=== PATIENT | female | born 1950 | race Caucasian/White ===

== ENCOUNTER 2017-09-01 14:00 | Inpatient (IN) | payer MEDICARE, BC ==
[~2017-09-01] VITALS: Ht 160 cm; Wt 59.0 kg
--- NOTE | 2017-09-01 14:05 | NUR ---
PRESENTS TO ER C/O RUQ ABDOMINAL PAIN X LAST NIGHT. A/OX 4. BREATHING EVEN AND UNLABORED. NO SOB, NAD, VITALS STABLE. SAFETY AND COMFORT MEASURES IN PLACE. AWAITING MD ORDERS.
--- NOTE | 2017-09-01 14:40 | NUR ---
NEW IV STARTED ON RAC, 20G. BLOOD DRAWN AND SENT TO LAB.
[2017-09-01 14:43] LABS: BASOPHILS % (AUTO) 0.2 % (0.0-2.0); EOSINOPHILS % (AUTO) 0.7 % (0.0-6.0); HEMATOCRIT 43 % (33-45); HEMOGLOBIN 14.9 g/dL (11.5-14.8); LYMPHOCYTES % (AUTO) 4.5 % (20.0-44.0); MEAN CORPUSCULAR HGB CONC 35 g/dl (31.0-36.0); MEAN CORPUSCULAR VOLUME 85 fL (82-100); MONOCYTES # (AUTO) 0.6 /CMM (0.1-1.30); MONOCYTES % (AUTO) 2.6 % (2.0-12.0); NEUTROPHILS # (AUTO) 19.8 /CMM (1.8-8.9); PLATELET COUNT (AUTO) 460 /CMM (150-450); RDW COEFFICIENT OF VARIATION 12.1 (11.5-15.0); RED BLOOD CELL COUNT(AUTO) 5.05 MIL/uL (4.0-5.2); WHITE BLOOD COUNT (AUTO) 21.6 K/uL (4.3-11.0)
[2017-09-01] MEDS ORDERED: MORPHINE SULFATE INJ 4 MG/ML DISP.SYRIN ONE ×2 (14:47→15:29)
[2017-09-01] MEDS ORDERED: ONDANSETRON HCL/PF 4 MG/2 ML VIAL ONE (14:47)
[2017-09-01 14:52] LABS: CREATININE 0.6 mg/dL (0.6-1.3); POTASSIUM 4.1 mmol/L (3.5-5.1)
[2017-09-01 14:55] LABS: INR 0.96 (0.85-1.15)
[2017-09-01 14:58] LABS: ALBUMIN 3.6 g/dL (3.4-5.0); BILIRUBIN,DIRECT 0.1 mg/dL (0.0-0.2); BILIRUBIN,TOTAL 0.7 mg/dL (0.2-1.0); TOTAL PROTEIN, SERUM 7.9 g/dL (6.4-8.2)
[2017-09-01] MEDS ORDERED: ONDANSETRON HCL/PF 4 MG/2 ML VIAL IVP ONE (15:00)
[2017-09-01] MEDS ORDERED: IV NS 0.9% 1,000 ML BAG IV ONE (15:00)
[2017-09-01] MEDS ORDERED: MORPHINE SULFATE INJ 2 MG/ML DISP.SYRIN IV ONE (15:00)
--- NOTE | 2017-09-01 15:25 | NUR ---
PATIENT TAKEN TO CT VIA STRETCHER.
[2017-09-01] MEDS ORDERED: MORPHINE SULFATE INJ 10 MG/ML DISP.SYRIN IV ONE (15:30)
[2017-09-01] MEDS ORDERED: PIPERACILLIN /TAZOBACTAM 3.375 G in IV D5W 50 ML IV ONE (16:30)
--- NOTE | 2017-09-01 16:32 | NUR ---
CALLED [facility]
--- NOTE | 2017-09-01 16:47 | NUR ---
JEREMIAH AUGUSTIN WILL BE PAGED PER ROMEO
[2017-09-01] MEDS ORDERED: TRAM50TA2 PO (16:49)
[2017-09-01] MEDS ORDERED: AMLO5TAB7 PO (16:49)
--- NOTE | 2017-09-01 16:49 | NUR ---
GOT BED FROM [facility]
[2017-09-01] MEDS ORDERED: HYDROMORPHONE INJ 0.5 MG/0.5 ML SYRINGE ONE (16:58)
[2017-09-01] MEDS ORDERED: HYDROMORPHONE 1 MG/1 ML DISP.SYRIN IV ONE (17:00)
--- NOTE | 2017-09-01 17:14 | NUR ---
REPORT GIVEN TO JUAN JOSE ROSA FOR SHIVA UPON ADMISSION
--- NOTE | 2017-09-01 17:20 | NUR ---
US TECH AT BEDSIDE.
--- NOTE | 2017-09-01 18:00 | NUR ---
PATIENT TRANSPORTED TO [facility] VIA STRETCHER. RN, JUAN JOSE TO PROVIDE SHIVA.
--- NOTE | 2017-09-01 18:15 | NUR ---
RN RECEIVING NOTES PATIENT RECEIVED FROM ER VIA GURNEY, AWAKE ALERT AND VERBALLY RESPONSIVE, ABLE TO MAKE NEEDS KNOWN. RESPIRATIONS EVEN AND UNLABORED, SPO2 REMAINS STABLE ON RA. PATIENT CONTINUED ON PAIN MANAGEMENT, DR GARCIA MADE AWARE PT IS ON UNIT, WILL CONTINUE TO CARRY OUT ADMISSION ORDERS, PT ORIENTED TO ROOM AND UNIT. IV SITE TO RIGHT AC 20G PATENT AND INTACT NO REDNESS OR INFILTRATION NOTED, WILL CONTINUE TO MONITOR AND ENDORSE TO NEXT SHIFT FOR CONTINUITY OF ADMISSION PROCESS
[2017-09-01] MEDS ORDERED: IV D5/0.45 NACL 1,000 ML IV PRN (18:37)
[2017-09-01] MEDS ORDERED: ACETAMINOPHEN 325 MG TABLET PO PRN (19:00)
[2017-09-01] MEDS ORDERED: Z GUARD REMEDY 2 OZ OINT TP PRN (19:00)
[2017-09-01] MEDS ORDERED: TRAMADOL HCL 50 MG TABLET PO PRN (19:00)
[2017-09-01] MEDS: HYDROMORPHONE INJ 0.5 MG/0.5 ML SYRINGE IV PRN ×2 (19:04→23:14)
[2017-09-01 20:00] VITALS: BP 133/79
[2017-09-01 21:20] LABS: APPEARANCE,URINE SL CLOUDY (CLEAR); BILIRUBIN,URINE NEGATIVE (NEGATIVE); BLOOD, URINE 1+ Ery/uL (NEGATIVE); COLOR,URINE YELLOW (YELLOW); KETONES,URINE TRACE (NEGATIVE); LEUKOCYTE ESTERASE ,URINE NEGATIVE (NEGATIVE); NITRITE, URINE NEGATIVE (NEGATIVE); PH,URINE 5.5 (5.0-8.0); PROTEIN,URINE NEGATIVE (NEGATIVE); UGLUCOSE NEGATIVE (NEGATIVE); UROBILINOGEN,URINE 0.2 EU/dL (0.2)
[2017-09-01 21:33] LABS: WBC,URINE 0-2 /HPF (0-3)
[2017-09-01 21:34] LABS: BACTERIA,URINE Rare /HPF (None Seen); SQUAMOUS EPITHELIAL CELL,UR Few /HPF (None Seen)
[2017-09-02] MEDS: PIPERACILLIN /TAZOBACTAM 3.375 G in IV D5W 50 ML IV SCH ×4 (00:15→18:06)
[2017-09-02] MEDS: HYDROMORPHONE INJ 0.5 MG/0.5 ML SYRINGE IV PRN ×8 (01:57→23:58)
[2017-09-02] MEDS: ONDANSETRON HCL/PF 4 MG/2 ML VIAL IVP PRN (02:04)
[2017-09-02 06:26] LABS: BASOPHILS % (AUTO) 0.2 % (0.0-2.0); HEMATOCRIT 38 % (33-45); HEMOGLOBIN 12.9 g/dL (11.5-14.8); LYMPHOCYTES % (AUTO) 4.8 % (20.0-44.0); MEAN CORPUSCULAR HGB CONC 34 g/dl (31.0-36.0); MEAN CORPUSCULAR VOLUME 86 fL (82-100); MONOCYTES # (AUTO) 1.2 /CMM (0.1-1.30); MONOCYTES % (AUTO) 5.7 % (2.0-12.0); NEUTROPHILS # (AUTO) 18.6 /CMM (1.8-8.9); NEUTROPHILS % (AUTO) 89.3 % (43.0-81.0); PLATELET COUNT (AUTO) 397 /CMM (150-450); RDW COEFFICIENT OF VARIATION 13.6 (11.5-15.0); RED BLOOD CELL COUNT(AUTO) 4.39 MIL/uL (4.0-5.2); WHITE BLOOD COUNT (AUTO) 20.9 K/uL (4.3-11.0)
--- NOTE | 2017-09-02 06:39 | NUR ---
MS RN NOTES AWAKE & RESPONSIVE. NOT IN ANY DISTRESS. NO SOB NOTED. DENIES ANY PAIN OR DISCOMFORT AT THIS TIME. KEPT ON NPO WITH IVF INFUSING WELL. MONITORED ACCORDINGLY. CALL LIGHT WITHIN REACH. BED IN LOWEST POSITION. SR UP X 3 WITH BED ALARM ON FOR SAFETY. WILL ENDORSE TO NEXT SHIFT.
[2017-09-02 06:55] LABS: ALBUMIN 2.8 g/dL (3.4-5.0); CALCIUM, SERUM 8.5 mg/dL (8.5-10.1); CREATININE 0.8 mg/dL (0.6-1.3); MAGNESIUM 1.9 mg/dL (1.8-2.4); PHOSPHORUS 3.3 mg/dL (2.5-4.9); POTASSIUM 3.9 mmol/L (3.5-5.1); TOTAL PROTEIN, SERUM 6.6 g/dL (6.4-8.2)
--- NOTE | 2017-09-02 06:57 | NUR ---
MS/RN Patient received Patient received from procedure analyst. A/O X4, NPO at this time, scheduled for surgery between 9:3 - 10a. All needs attended, call light within reach, safety measures in place. Will continue to monitor and ensure safety.
[2017-09-02 07:12] LABS: THYROID STIMULATING HORMONE 0.401 uIU/mL (0.358-3.74)
[2017-09-02 08:00] VITALS: BP 108/64
[2017-09-02 08:31] VITALS: BP 108/64
[2017-09-02] MEDS: AMLODIPINE BESYLATE 5 MG TABLET PO SCH (08:35)
[2017-09-02] MEDS ORDERED: PANTOPRAZOLE 40 MG VIAL IV SCH (09:00)
--- NOTE | 2017-09-02 09:20 | NUR ---
MS/RN 2D echo 2Decho carried out at bedside.
--- NOTE | 2017-09-02 09:37 | NUR ---
MS/RN Medications Dilaudid 0.5mg administered for severe abdominal pain 11/12. Will monitor effectiveness.
--- NOTE | 2017-09-02 10:37 | NUR ---
MS/RN OR Patient taken to operating room, chart with patient.
[2017-09-02] MEDS ORDERED: FENTANYL PF 100MCG/2ML AMPUL ONE (10:40)
[2017-09-02] MEDS ORDERED: MIDAZOLAM HCL 2 MG/2ML VIAL ONE (10:40)
[2017-09-02] MEDS ORDERED: ROCURONIUM BROMIDE 50 MG/5 ML ONE (10:41)
[2017-09-02] MEDS ORDERED: HYDROMORPHONE INJ 2 MG/ML DISP.SYRIN ONE ×3 (11:30→14:38)
[2017-09-02] MEDS ORDERED: BUPIVACAINE 0.25% 75 MG/30 ML VIAL ONE ×2 (11:37→13:37)
--- NOTE | 2017-09-02 15:00 | NUR ---
MS/cylinder batcher Per nursing warehouse shipping supervisor, patient to be transferred to 3rd floor tele following surgery. Awaiting bed assignment.
--- NOTE | 2017-09-02 15:55 | NUR ---
QUALITY ASSURANCE AUDITOR OPENING NOTES RECEIVED PATIENT IN STABLE CONDITION. IN NO APPARENT DISTRESS. PATIENT CAME BACK FROM CHOLECYSTECTOMY. VITAL SIGNS WITHIN NORMAL LIMITS. WILL CONTINUE TO MONITOR.
[2017-09-02] MEDS: IV LR 1000 ML 1,000 ML IV PRN (16:03)
--- NOTE | 2017-09-02 18:44 | NUR ---
BEACH LIFEGUARD CLOSING NOTES PATIENT IS RESTING IN BED. IN NO APPARENT DISTRESS. BEDSIDE RAILS ARE UPX2. BED IS LOCKED AND LOWERED. CALL LIGHT IS WITHIN REACH. ALL NEEDS WERE MET. WILL ENDORSE CARE TO SPONGE BUFFER NURSE FOR SHIVA.
--- NOTE | 2017-09-02 19:45 | NUR ---
PIZZA HUT ASSISTANT NOTES RECEIVED ON BED A/O X4,S/P LAP OPEN CHOLECYSTECTOMY.ABDOMINAL DRESSING INTACT AND DRY.SCD IN USED ON BOTH LEGS FOR DVT PROHYLAXIS.SALINE LOCK INTACT INFUSING LR AT 100ML/HR RATE.VITALS WITH IN NORMAL LIMITS.WILL MONITOR FOR PAIN.
--- NOTE | 2017-09-02 19:57 | NUR ---
MACHINE SANDER NOTES C/O ABDOMINAL PAIN,SCREAMING,RESTLESS,PAIN SCALE OF 8/10.DILAUDID 1MG IVP GIVEN ORDERED.
[2017-09-02 20:00] VITALS: BP 113/75
--- NOTE | 2017-09-02 20:30 | NUR ---
FLOOR CLERK NOTES SLEEPING,EASILY AROUSABLE TO VERBAL STIMULI.
--- NOTE | 2017-09-02 21:26 | NUR ---
MANUAL EQUIPMENT MECHANIC NOTES AWAKE,SCREAMING IN PAIN,DILAUDID 1MG IVP GIVEN.O2 SAT 95%. ENCOURAGED TO DO INCENTIVE SPIROMETRY WHILE AWAKE.
[2017-09-03] VITALS: BP_SYST 137; BP_DIAS 78; BP_DIAS 82
[2017-09-03] MEDS: PIPERACILLIN /TAZOBACTAM 3.375 G in IV D5W 50 ML IV SCH ×4 (00:03→17:02)
[2017-09-03] MEDS: diphenhydrAMINE HCL 50 MG/ML VIAL IV PRN ×2 (01:50→21:07)
[2017-09-03] MEDS: HYDROMORPHONE INJ 0.5 MG/0.5 ML SYRINGE IV PRN ×10 (02:22→22:59)
[2017-09-03 04:00] VITALS: BP 134/70
[2017-09-03] MEDS: IV LR 1000 ML 1,000 ML IV PRN ×2 (04:24→17:02)
--- NOTE | 2017-09-03 05:56 | NUR ---
RETAIL AGENT NOTES C/O ABDOMINAL PAIN AFTER BEDSIDE COMMODE.DILAUDID 1MG IVP GIVEN FOR PAIN 8/10 ON PAIN SCALE.
[2017-09-03 06:19] LABS: BASOPHILS % (AUTO) 0.2 % (0.0-2.0); HEMATOCRIT 32 % (33-45); HEMOGLOBIN 10.8 g/dL (11.5-14.8); LYMPHOCYTES # (AUTO) 1.3 /CMM (0.8-4.8); MEAN CORPUSCULAR HGB CONC 34 g/dl (31.0-36.0); MEAN CORPUSCULAR VOLUME 88 fL (82-100); MONOCYTES # (AUTO) 0.8 /CMM (0.1-1.30); MONOCYTES % (AUTO) 4.7 % (2.0-12.0); NEUTROPHILS # (AUTO) 14.6 /CMM (1.8-8.9); NEUTROPHILS % (AUTO) 87.1 % (43.0-81.0); PLATELET COUNT (AUTO) 353 /CMM (150-450); RED BLOOD CELL COUNT(AUTO) 3.65 MIL/uL (4.0-5.2); WHITE BLOOD COUNT (AUTO) 16.7 K/uL (4.3-11.0)
[2017-09-03 06:42] LABS: ALBUMIN 2.2 g/dL (3.4-5.0); BILIRUBIN,TOTAL 0.7 mg/dL (0.2-1.0); CALCIUM, SERUM 8.3 mg/dL (8.5-10.1); CREATININE 0.8 mg/dL (0.6-1.3); MAGNESIUM 2.9 mg/dL (1.8-2.4); PHOSPHORUS 2.7 mg/dL (2.5-4.9); POTASSIUM 4.3 mmol/L (3.5-5.1); TOTAL PROTEIN, SERUM 6.1 g/dL (6.4-8.2)
--- NOTE | 2017-09-03 06:53 | NUR ---
DRUG SAFETY SPECIALIST NOTES SLEEPING AT THIS TIME,IVF INFUSING,IV ABX TOLERATED WELL.ITCHINESS SUBSIDED.ENCOURAGED AMBULATION.WILL ENDORSE TO DAY NURSE FOR SHIVA.
[2017-09-03 06:57] LABS: BILIRUBIN,DIRECT 0.2 mg/dL (0.0-0.2)
--- NOTE | 2017-09-03 07:39 | NUR ---
HIDE INSPECTOR OPENING NOTES RECEIVED PT SITTING UPRIGHT IN BED. AWAKE AND RESPONSIVE. RESPIRATIONS ARE EVEN AND UNLABORED, NOT IN ANY ACUTE DISTRESS NOTED. IV SITE INTACT, NO INFILTRATION NOTED. DRESSING KEPT CLEAN AND DRY. IV FLUIDS INFUSING AT THIS TIME AND TOLERATING WELL. SAFETY MEASURES ARE IN PLACE. CALL LIGHT IS LEFT WITHIN REACH. WILL CONTINUE TO MONITOR THROUGHOUT SHIFT FOR CONTINUITY OF CARE.
[2017-09-03 08:00] VITALS: BP 122/72
[2017-09-03] MEDS: PANTOPRAZOLE 40 MG VIAL IV SCH (08:32)
[2017-09-03] MEDS: AMLODIPINE BESYLATE 5 MG TABLET PO SCH (08:32)
--- NOTE | 2017-09-03 10:01 | NUR ---
MS ROSA NOTES PT SEEN AND EXAMINED BY ANDERSON HIGHTOWER. Addendum: 09/03/17 at 1130 by ADRIANA QUINTANILLA RN INCORRECT PATIENT.
--- NOTE | 2017-09-03 11:45 | NUR ---
MS RN NOTES PT SEEN AND EXAMINED BY DR. GARCIA.
--- NOTE | 2017-09-03 12:35 | NUR ---
MS RN NOTES PT SEEN AND EXAMINED BY DR. ADAIR W/ ORDERS TO START PT ON CLEAR LIQUIDS AND ADVANCE TOLERATED.
[2017-09-03 16:00] VITALS: BP 117/70
--- NOTE | 2017-09-03 18:39 | NUR ---
MS RN CLOSING NOTES ALL DUE MEDS GIVEN, NEEDS MET AND RENDERED. AWAKE AND RESPONSIVE. RESPIRATIONS ARE EVEN AND UNLABORED, NOT IN ANY ACUTE DISTRESS NOTED. DENIES ANY CHEST PAIN, N/V. IV SITE INTACT, NO INFILTRATION NOTED. DRESSING KEPT CLEAN AND DRY. IV FLUIDS RUNNING AND TOLERATING WELL. SAFETY MEASURES ARE IN PLACE. CALL LIGHT IS LEFT WITHIN REACH. WILL ENDORSE TO NEXT SHIFT FOR CONTINUITY OF CARE.
--- NOTE | 2017-09-03 19:30 | NUR ---
MS RN OPENING NOTES: PATIENT IN BED, AOX4, ON O2 AT 2 LPM VIA NC, BREATHING EVEN AND UNLABORED. BREATH SOUNDS CLEAR TO AUSCULTATION. PATIENT COMPLAINS OF PAIN OVER ABDOMINAL SURGICAL SITE, SCALED AT 9/10, DESCRIBED SHARP. NOTED ABDOMINAL DRESSING INTACT AND CLEAN, NO BLEEDING NOTED. KAREEM DRAIN OVER ABDOMEN WITH SEROSANGUINEOUS DRAINAGE, MAINTAINED NEGATIVE PRESSURE. PIV OVER LFA G22 INTACT AND PATENT TO FLUSH. PROVIDED FOR COMFORT AND SAFETY. BED IN LOWEST AND LOCKED POSITION, SIDERAILS UP X 2, CALL LIGHT WITHIN REACH. WILL CONT TO MONITOR.
[2017-09-03 20:00] VITALS: BP 107/60
[2017-09-03] MEDS: HYDROCODONE/APAP 5/325MG 1 EACH TABLET PO PRN (21:06)
--- NOTE | 2017-09-03 21:07 | NUR ---
RN NOTES: PATIENT COMPLAINED OF GENERALIZED ITCHING, NO HIVES NOTED BUT PATIENT SCRATCHING AT LEGS AND CHEST. ADMINISTERED BENADRYL 25 MG IV PRN. SPONGE BATH ALSO GIVEN, LINEN CHANGE DONE. WILL CONT TO MONITOR.
--- NOTE | 2017-09-03 22:59 | NUR ---
RN NOTES: PATIENT COMPLAINED OF 9/10 PAIN OVER ABDOMINAL INCISION. ADMINISTERED DILAUDID 1 MG IV. WILL CONT TO MONITOR.
[2017-09-03 23:00] VITALS: BP 144/68
[2017-09-04] MEDS: PIPERACILLIN /TAZOBACTAM 3.375 G in IV D5W 50 ML IV SCH ×5 (00:20→23:25)
[2017-09-04] MEDS: HYDROCODONE/APAP 5/325MG 1 EACH TABLET PO PRN ×4 (02:57→23:25)
--- NOTE | 2017-09-04 02:57 | NUR ---
RN NOTES: PATIENT COMPLAINED OF 7/10 SHARP PAIN OVER ABDOMINAL INCISION. ADMINISTERED NORCO 5-325 MG PO. WILL CONT TO MONITOR.
[2017-09-04] MEDS: HYDROMORPHONE INJ 0.5 MG/0.5 ML SYRINGE IV PRN ×6 (05:26→21:24)
[2017-09-04 06:36] LABS: BASOPHILS % (AUTO) 0.1 % (0.0-2.0); EOSINOPHILS % (AUTO) 2.3 % (0.0-6.0); HEMATOCRIT 26 % (33-45); LYMPHOCYTES # (AUTO) 1.4 /CMM (0.8-4.8); LYMPHOCYTES % (AUTO) 11.5 % (20.0-44.0); MEAN CORPUSCULAR HGB CONC 34 g/dl (31.0-36.0); MEAN CORPUSCULAR VOLUME 86 fL (82-100); MONOCYTES # (AUTO) 0.7 /CMM (0.1-1.30); MONOCYTES % (AUTO) 5.7 % (2.0-12.0); NEUTROPHILS # (AUTO) 9.6 /CMM (1.8-8.9); NEUTROPHILS % (AUTO) 80.4 % (43.0-81.0); PLATELET COUNT (AUTO) 295 /CMM (150-450); RDW COEFFICIENT OF VARIATION 13.7 (11.5-15.0); RED BLOOD CELL COUNT(AUTO) 3.04 MIL/uL (4.0-5.2)
[2017-09-04 06:39] LABS: BILIRUBIN,TOTAL 0.5 mg/dL (0.2-1.0); CALCIUM, SERUM 8.1 mg/dL (8.5-10.1); CREATININE 0.6 mg/dL (0.6-1.3); MAGNESIUM 1.7 mg/dL (1.8-2.4); PHOSPHORUS 2.5 mg/dL (2.5-4.9); POTASSIUM 3.6 mmol/L (3.5-5.1); TOTAL PROTEIN, SERUM 5.8 g/dL (6.4-8.2)
--- NOTE | 2017-09-04 06:41 | NUR ---
MS RN CLOSING NOTES: PATIENT IN BED, AOX4, ON O2 AT 2 LPM VIA NC, BREATHING EVEN AND UNLABORED. STILL COMPLAINING OF MODERATE PAIN OVER ABDOMINAL INCISION SITE. PIV OVER RFA G 22 INTACT AND INFUSING WELL WITH IVF OF LR RUNNING AT 100 ML /HR. KAREEM DRAIN IN PLACE DRAINING SEROSANGUINEOUS FLUID, COLLECTED 15 ML THROUGHOUT SHIFT. PROVIDED FOR COMFORT AND SAFETY. BED IN LOWEST AND LOCKED POSITION, SIDERAILS UP X 2, CALL LIGHT WITHIN REACH. WILL ENDORSE TO AM RN FOR SHIVA.
--- NOTE | 2017-09-04 07:05 | NUR ---
RN NOTES PT IS SITTING UP IN BED, AWAKE AND ALERT. PT ON 2L O2, RESPIRATIONS ARE EVEN AND UNLABORED. IV ON RFA INTACT AND RUNNING LR @ 100ML/HR. ABDOMINAL DRESSING IS DRY AND INTACT WITH KAREEM DRAIN IN PLACE. NO SIGNS OF DISTRESS NOTED. SAFETY MEASURES ARE IN PLACE, CALL LIGHT IS IN REACH. WILL CONTINUE TO MONITOR.
[2017-09-04 08:00] VITALS: BP 123/74
[2017-09-04] MEDS: PANTOPRAZOLE 40 MG VIAL IV SCH (08:33)
[2017-09-04] MEDS: AMLODIPINE BESYLATE 5 MG TABLET PO SCH (08:34)
[2017-09-04] MEDS: IV LR 1000 ML 1,000 ML IV PRN ×2 (08:57→23:32)
[2017-09-04] MEDS ORDERED: MAGNESIUM OXIDE 400 MG TABLET PO ONE (13:00)
[2017-09-04] MEDS: BACITRACIN ZINC OINT PACKET 1 EA PACKET TP SCH (15:00)
[2017-09-04 16:00] VITALS: BP 131/73
--- NOTE | 2017-09-04 16:00 | NUR ---
RN NOTES DR. GARCIA EXAMINED INCISION SITE FROM SURGERY. KAREEM DRAIN HAD BEEN PULLED PARTIALLY OUT. PER DR. ADAIR, KAREEM DRAIN OKAY TO REMOVE. INCISION SITE WAS CLEANED AND DRY DRESSING WAS PLACED OVER INCISION AND KAREEM SITE.
--- NOTE | 2017-09-04 18:45 | NUR ---
RN NOTES PT IS LAYING DOWN IN BED, AWAKE AND ALERT, RESTING. PT ON 2L O2, RESPIRATIONS ARE EVEN AND UNLABORED. IV ON RFA INTACT AND RUNNING LR @ 100ML/HR. ALL MEDS WERE GIVEN ORDERED AND PT NEEDS MET. DILAUDID LAST GIVEN @ 1815 FOR PAIN MANAGEMENT. ABDOMINAL INCISION DRESSING IS INTACT, INCISION IS CLEAN WITH NO SIGNS OF INFECTION NOTED. SAFETY MEASURES ARE IN PLACE, CALL LIGHT IS IN REACH. WILL ENDORSE TO MANAGER WOUND RN FOR CONTINUITY OF CARE.
--- NOTE | 2017-09-04 19:35 | NUR ---
RN NOTES RECEIVED PT. AWAKE ON BED, A/OX3, DRESSING ON THE ABDOMEN DRY AND INTACT, CALL LIGHT WITHIN REACH, SIDERAILSUPX2, CONTINUE TO MONITOR
[2017-09-04 20:00] VITALS: BP 121/82
--- NOTE | 2017-09-04 20:15 | NUR ---
RN NOTES PT. HAS A VISITOR EARLIER AND SHE WAS LAUGHING , AFTER VISITOR LEFT PT. COMPLAINED OF PAIN , EXPLAINED TO THE PT THAT SHE JUST HAD HER PAIN MEDICATION AND IT'S NOT DUE ANYTIME. ENCOURAGE PATIENT TO MOVE OR WALK . EXPLAINED THE BENEFITS OF MOVING AND WALKING TO THE PATIENT.
--- NOTE | 2017-09-04 21:33 | NUR ---
RN NOTES COMPLAINED OF ABDOMINAL PAIN- DILAUDID 1MG IV GIVEN ORDERED, V/S STABLE, CHECKED ABDOMINAL DRESSING DRY AND INTACT, . ASKED THE PATIENT IF SHE ALREADY PASS GAS, PT. STATED " SHE HAVEN'T PASS GAS SINCE WED". ENCOURAGE PT. TO WALKED
--- NOTE | 2017-09-04 22:00 | NUR ---
RN NOTES SPOKE TO RAULITO ELIAS-LIQUID YEAST SUPERVISOR AND INFORMED HIM THAT PT HASN'T PASS GAS YET SINCE 09/02 AND IF HE CAN ORDER MOM. RAULITO ELIAS WILL GOING TO PUT THE ORDER
--- NOTE | 2017-09-04 23:28 | NUR ---
RN NOTES COMPLAINED OF ABDOMINAL PAIN-NORCO 5/325MG PO GIVEN ORDERED, V/S STABLE
[2017-09-05] MEDS: HYDROMORPHONE INJ 0.5 MG/0.5 ML SYRINGE IV PRN ×3 (00:30→06:21)
--- NOTE | 2017-09-05 00:34 | NUR ---
RN NOTES COMPLAINED OF ABDOMINAL PAIN- DILAUDID 1MG IV GIVEN ORDERED, V/S STABLE
[2017-09-05] MEDS: PIPERACILLIN /TAZOBACTAM 3.375 G in IV D5W 50 ML IV SCH ×3 (05:19→17:35)
[2017-09-05] MEDS: HYDROCODONE/APAP 5/325MG 1 EACH TABLET PO PRN ×2 (05:19→13:03)
--- NOTE | 2017-09-05 05:25 | NUR ---
RN NOTES COMPLAINED OF ABDOMINAL PAIN- NORCO 5/325MG PO GIVEN ORDERED, V/S STABLE
--- NOTE | 2017-09-05 06:36 | NUR ---
RN NOTES COMPLAINED OF ABDOMINAL PAIN-DILAUDID 1MG IV GIVEN ORDERED, V/S STABLE, MORNING CARE RENDERED, CALL LIGHT WITHIN REACH, SIDERAILSUPX2, PT NEEDS ATTENDED
--- NOTE | 2017-09-05 07:56 | NUR ---
MS RN OPENING NOTE PATIENT IS ALERT AND ORIENTED X4. NO PAIN AT THIS TIME. NO SOB OR DISTRESS NOTED. CALL LIGHT WITHIN REACH. SAFETY MEASURES IMPLEMENTED. ABLE TO COMMUNICATE NEEDS. IV INTACT AND PATENT NO REDNESS OR SWELLING NOTED. AWAITING AM LABS. S/P CHOLECYSTECTOMY WITH DR. ADAIR. WILL CONTINUE TO MONITOR THROUGHOUT SHIFT.
[2017-09-05 08:00] VITALS: BP 125/70
[2017-09-05] MEDS: AMLODIPINE BESYLATE 5 MG TABLET PO SCH (08:57)
[2017-09-05] MEDS: PANTOPRAZOLE 40 MG VIAL IV SCH (08:57)
[2017-09-05] MEDS: BACITRACIN ZINC OINT PACKET 1 EA PACKET TP SCH (09:00)
[2017-09-05 10:28] LABS: BASOPHILS % (AUTO) 0.3 % (0.0-2.0); HEMATOCRIT 29 % (33-45); HEMOGLOBIN 9.8 g/dL (11.5-14.8); LYMPHOCYTES # (AUTO) 1.6 /CMM (0.8-4.8); LYMPHOCYTES % (AUTO) 14.7 % (20.0-44.0); MEAN CORPUSCULAR HGB CONC 34 g/dl (31.0-36.0); MEAN CORPUSCULAR VOLUME 86 fL (82-100); MONOCYTES # (AUTO) 0.7 /CMM (0.1-1.30); MONOCYTES % (AUTO) 6.3 % (2.0-12.0); NEUTROPHILS # (AUTO) 8.5 /CMM (1.8-8.9); NEUTROPHILS % (AUTO) 75.7 % (43.0-81.0); PLATELET COUNT (AUTO) 421 /CMM (150-450); RDW COEFFICIENT OF VARIATION 13.5 (11.5-15.0); RED BLOOD CELL COUNT(AUTO) 3.37 MIL/uL (4.0-5.2); WHITE BLOOD COUNT (AUTO) 11.2 K/uL (4.3-11.0)
--- NOTE | 2017-09-05 10:30 | NUR ---
MS RN NOTE PATIENT HAD ONE EPISODE OF EMESIS, MADE MD AWARE. NO NEW ORDERS AT THIS TIME. ENCOURAGING SIPS OF WATER AND JELLO FOR NOW. WILL CONTINUE TO MONITOR
--- NOTE | 2017-09-05 10:35 | NUR ---
MS RN NOTE POTASSIUM-3.1 INFORMED PHARMACY AND MD TO REPLACE. NO NEW ORDERS AT THIS TIME. WILL CONTINUE TO MONITOR
[2017-09-05] MEDS: HYDROMORPHONE INJ 2 MG/ML DISP.SYRIN IV PRN ×3 (10:49→21:30)
[2017-09-05 11:07] LABS: ALBUMIN 2.1 g/dL (3.4-5.0); BILIRUBIN,TOTAL 0.5 mg/dL (0.2-1.0); CALCIUM, SERUM 8.5 mg/dL (8.5-10.1); CREATININE 0.6 mg/dL (0.6-1.3); MAGNESIUM 1.5 mg/dL (1.8-2.4); PHOSPHORUS 3.5 mg/dL (2.5-4.9); POTASSIUM 3.1 mmol/L (3.5-5.1); TOTAL PROTEIN, SERUM 5.9 g/dL (6.4-8.2)
[2017-09-05] MEDS ORDERED: MAGNESIUM OXIDE 400 MG TABLET PO ONE (13:00)
--- NOTE | 2017-09-05 13:15 | NUR ---
MS RN NOTE MAGNESIUM-1.7 MD AWARE. REPLACED WITH 800MG MAGNESIUM OXIDE PO. PATIENT REQUESTED FOR NORCO 5/. PAIN 10/12 ABDOMINAL INCISION, MEDICATION GIVEN. WILL REASSESS PAIN AND REPLACE LABS NEEDED.
[2017-09-05 16:22] VITALS: BP 155/72
[2017-09-05] MEDS: IV LR 1000 ML 1,000 ML IV PRN (18:00)
--- NOTE | 2017-09-05 18:49 | NUR ---
MS RN CLOSING NOTE PATIENT IN BED AT THIS TIME RESTING COMFORTABLY. NO PAIN NOTED. NO SOB OR DISTRESS NOTED. CALL LIGHT WITHIN REACH AT ALL TIMES. SAFETY MEASURES IMPLEMENTED. ABLE TO COMMUNICATE NEEDS. ALL DUE MEDICATIONS GIVEN ORDERED. ALL NURSING CARE NEEDS ATTENDED TO. SURGICAL DRESSING CHANGED ON SHIFT. IV INTACT AND PATENT NO REDNESS OR SWELLING NOTED WITH IV FLUIDS RUNNING AT THIS TIME AT 100 ML/HR TOLERATING WELL. WILL ENDORSE TO FUEL ISLAND ATTENDANT FOR SHIVA
--- NOTE | 2017-09-05 19:30 | NUR ---
MS RN INITIAL NOTE PT IS SITTING UP IN BED, A/O X4. ABLE TO MAKES NEEDS KNOWN. NO SIGNS OF SOB OR DISTRESS, BREATHING EVENLY AND UNLABORED ON RA. DENIES PAIN AT THIS TIME. IV ACCESS IS INTACT AND PATENT WITH FLUIDS INFUSING. DRESSING ON ABDOMEN IS INTACT, NO SIGNS OF DRAINAGE AT THIS TIME. BED IS IN LOW AND LOCKED POSITION, CALL LIGHT WITHIN REACH. WILL CONTINUE TO MONITOR PT
[2017-09-05 20:00] VITALS: BP 153/84
[2017-09-05 20:38] VITALS: BP 153/84
--- NOTE | 2017-09-05 23:20 | NUR ---
MS RN NOTE DR ADAIR CAME TO SEE PT, PT WAS SLEEPING. PER MD, IF PT REMAINS STABLE OVER NIGHT OK FOR MEDICAL TEAM TO DC HER.
[2017-09-06] MEDS: PIPERACILLIN /TAZOBACTAM 3.375 G in IV D5W 50 ML IV SCH ×5 (00:50→23:27)
[2017-09-06] MEDS: HYDROCODONE/APAP 5/325MG 1 EACH TABLET PO PRN (00:50)
[2017-09-06] MEDS: HYDROMORPHONE INJ 2 MG/ML DISP.SYRIN IV PRN ×2 (05:04→15:54)
--- NOTE | 2017-09-06 06:21 | NUR ---
MS RN CLOSING NOTE PT IS IN BED RESTING. NO SIGNS OF SOB OR DISTRESS, BREATHING EVENLY AND UNLABORED ON RA. IV ACCESS IS INTACT AND PATENT WITH FLUIDS INFUSING. NO ACUTE CHANGES THROUGHOUT THE SHIFT. ALL NEEDS WERE ANTICIPATED AND MET. BED IS IN LOW AND LOCKED POSITION, CALL LIGHT WITHIN REACH. WILL ENDORSE TO DAYSHIFT.
[2017-09-06 06:38] LABS: BASOPHILS % (AUTO) 0.5 % (0.0-2.0); EOSINOPHILS % (AUTO) 3.8 % (0.0-6.0); HEMATOCRIT 27 % (33-45); HEMOGLOBIN 9.5 g/dL (11.5-14.8); LYMPHOCYTES % (AUTO) 23.6 % (20.0-44.0); MEAN CORPUSCULAR HGB CONC 35 g/dl (31.0-36.0); MEAN CORPUSCULAR VOLUME 85 fL (82-100); MONOCYTES # (AUTO) 0.9 /CMM (0.1-1.30); MONOCYTES % (AUTO) 10.2 % (2.0-12.0); NEUTROPHILS # (AUTO) 5.2 /CMM (1.8-8.9); NEUTROPHILS % (AUTO) 61.9 % (43.0-81.0); PLATELET COUNT (AUTO) 472 /CMM (150-450); RDW COEFFICIENT OF VARIATION 14.1 (11.5-15.0); RED BLOOD CELL COUNT(AUTO) 3.21 MIL/uL (4.0-5.2); WHITE BLOOD COUNT (AUTO) 8.4 K/uL (4.3-11.0)
[2017-09-06 06:49] LABS: BILIRUBIN,TOTAL 2.3 mg/dL (0.2-1.0); CALCIUM, SERUM 8.4 mg/dL (8.5-10.1); CREATININE 0.6 mg/dL (0.6-1.3); MAGNESIUM 1.6 mg/dL (1.8-2.4); PHOSPHORUS 3.7 mg/dL (2.5-4.9); POTASSIUM 2.9 mmol/L (3.5-5.1); TOTAL PROTEIN, SERUM 5.8 g/dL (6.4-8.2)
--- NOTE | 2017-09-06 07:36 | NUR ---
MS MOE OPENING NOTE PATIENT RESTING COMFORTABLY AT THIS TIME IN BED LOCKED IN LOWEST POSITION WITH SIDE RAILS UP. CALL LIGHT WITHIN REACH. SAFETY MEASURES IMPLEMENTED. NO FACIAL GRIMACING NOTED FOR PAIN. NO SOB OR DISTRESS NOTED, STABLE ON ROOM AIR. ABLE TO COMMUNICATE NEEDS. IV INTACT AND PATENT WITH IV FLUIDS RUNNING AT THIS TIME. AWAITING LAB RESULTS AND WILL REPLACE NEEDED. POSSIBLE DISCHARGE TODAY. WILL CONTINUE TO MONITOR THROUGHOUT SHIFT. Addendum: 09/06/17 at 0738 by WU BUTLER RN ABDOMINAL INCISION KEPT CLEAN DRY AND INTACT
[2017-09-06 08:00] VITALS: BP 148/74
[2017-09-06] MEDS: BACITRACIN ZINC OINT PACKET 1 EA PACKET TP SCH (08:17)
[2017-09-06] MEDS: AMLODIPINE BESYLATE 5 MG TABLET PO SCH (08:17)
[2017-09-06] MEDS: ONDANSETRON HCL/PF 4 MG/2 ML VIAL IVP PRN ×2 (08:17→23:21)
[2017-09-06] MEDS: PANTOPRAZOLE 40 MG VIAL IV SCH (08:17)
--- NOTE | 2017-09-06 08:28 | NUR ---
MS RN NOTE PATIENT CALLED FOR ASSISTANCE. UPON ENTERING THE ROOM PATIENT WAS STANDING OVER THE BEDSIDE COMMODE INFORMING ME THAT SHE THREW UP AND I WAS ASSISTING PATIENT, SHE THREW UP MORE. GREEN WITH UNDIGESTED FOOD. CURRENTLY NPO AT THIS TIME. WILL INFORM MD AND SURGEON. ZOFRAN 4MG IV GIVEN. WILL CONTINUE TO MONITOR
--- NOTE | 2017-09-06 08:52 | NUR ---
MS RN NOTE RECEIVED CALL BACK FROM DR. GARCIA FOR REGLAN 5 MG IV TID AND SMALL BOWEL FOLLOW THROUGH WITH 50/50 MIX BARIUM AND GASTROGRAFFIN. ORDERS NOTED AND CARRIED OUT.
--- NOTE | 2017-09-06 09:50 | NUR ---
MS RN NOTE RECEIVED CALL BACK FROM DR. ADAIR FOR XRAY 2 VIEW. ORDERS NOTED AND CARRIED OUT.
[2017-09-06] MEDS ORDERED: DIATR MEGLU/DIATRIZOATE SODIUM 120 ML BOTTLE (GASTROGRAPHIN) ONE (10:00)
[2017-09-06] MEDS ORDERED: BARIUM SULFATE 98% 135 ML SUSP.RECON PO ONE (10:01)
[2017-09-06] MEDS: METOCLOPRAMIDE HCL 10 MG/2 ML VIAL IV SCH ×3 (10:01→16:24)
--- NOTE | 2017-09-06 10:01 | NUR ---
MS RN NOTE REGLAN 5 MG IV GIVEN AT THIS TIME. WILL CONTINUE TO MONITOR FOR NAUSEA OR VOMITING.
[2017-09-06] MEDS: Magnesium 1GM/D5W 100ML PREMIX 100 ML IV SCH ×2 (10:33→14:06)
--- NOTE | 2017-09-06 10:39 | NUR ---
MS RN NOTE PATIENT WAS REFUSING MAGNESIUM REPLACEMENT EARLIER. EXPLAINED RISKS AND BENEFITS, PATIENT IS OKAY TO RECEIVE MAGNESIUM REPLACEMENT. CURRENTLY RUNNING AT THIS TIME.
--- NOTE | 2017-09-06 10:51 | NUR ---
MS RN NOTE PATIENT HEADED DOWN TO XRAY FOR SMALL BOWEL FOLLOW THROUGH. PATIENT STABLE AT THIS TIME. WILL CONTINUE CARE WHEN PATIENT RETURNS
--- NOTE | 2017-09-06 12:35 | NUR ---
MS RN NOTE PATIENT IS BACK FROM XRAY SMALL BOWEL FOLLOW THROUGH. NO W ABLE TO CONTINUE CARE AND MAGNESIUM IV RESUMED.
--- NOTE | 2017-09-06 13:30 | NUR ---
MS RN NOTE MAGNESIUM BAG #1 FINISHED NOW STARTING ZOSYN AND REGLAN IV GIVEN.
--- NOTE | 2017-09-06 14:08 | NUR ---
MS RN NOTE ZOSYN WAS ADMINISTERED PRIOR TO SECOND BAG. PATIENT WAS IN XRAY EARLIER AND CAME BACK AT 12:30. NOW ABLE TO GIVE
[2017-09-06] MEDS: POTASSIUM CL. PREMIX PERIPHER. 50 ML IV SCH ×6 (15:14→20:25)
--- NOTE | 2017-09-06 15:15 | NUR ---
MS RN NOTE MAGNESIUM BAG #2 FINISHED ADMINISTERING. NOW ABLE TO START POTASSIUM REPLACEMENT BAG #1
--- NOTE | 2017-09-06 15:54 | NUR ---
MS RN NOTE PATIENT IN SEVERE PAIN 10/10 ABDOMINAL PAIN. PATIENT HAS FACIAL GRIMACING NOTED, MOANING AND GUARDING PRESENT. SHARP PAIN. DILAUDID 1MG GIVEN IV. WILL REASSESS PAIN
[2017-09-06 16:00] VITALS: BP 142/82
--- NOTE | 2017-09-06 16:09 | NUR ---
MS RN NOTE PER MD TO START CLEAR LIQUID DIET FOR DINNER TOLERATED. ORDER NOTED AND CARRIED OUT.
--- NOTE | 2017-09-06 16:19 | NUR ---
MS RN NOTE PATIENT HAD SMALL BOWEL FOLLOW THROUGH TEST EARLIER NOW ABLE TO ADMINISTER BAG #2
--- NOTE | 2017-09-06 17:20 | NUR ---
MS RN NOTE BAG #3 OF POTASSIUM STARTED.
--- NOTE | 2017-09-06 17:38 | NUR ---
MS RN NOTE PER DR ADAIR, TO KEEP PATIENT NPO AT THIS TIME. CBC FOR TOMORROW. ORDERS NOTED AND CARRIED OUT.
--- NOTE | 2017-09-06 18:09 | NUR ---
MS RN NOTE NOW ABLE TO GIVE 1800 ZOSYN.
--- NOTE | 2017-09-06 18:19 | NUR ---
MS ROSA NOTE BAG 34 OF POTASSIUM STARTED AT THIS TIME Addendum: 09/06/17 at 1819 by WU BUTLER RN KRISTI #4
--- NOTE | 2017-09-06 18:29 | NUR ---
MS RN CLOSING NOTE PATIENT IS ALERT AND ORIENTED x4. RESTING IN BED AT THIS TIME WITH BED LOCKED IN LOWEST POSITION AND SIDE RAILS UP x2.NO PAIN AT THIS TIME. NO SOB OR DISTRESS NOTED, ON ROOM AIR AT 98% TOLERATING WELL. CALL LIGHT WITHIN REACH AT ALL TIMES, SAFETY MEASURES IMPLEMENTED. ABLE TO COMMUNICATE NEEDS. ALL DUE MEDICATIONS GIVEN ORDERED BY MD. ALL NURSING CARE NEEDS ATTENDED TO NEEDED. CURRENTLY NPO AT THIS TIME. STILL HAVING SMALL BOWEL FOLLOW THROUGH. IV INTACT AND PATENT WITH BAG #4 OF POTASSIUM RUNNING AT THIS TIME. TWO MORE BAGS TO BE GIVEN. LABS IN AM. WILL ENDORSE TO LAND ECONOMIST NURSE FOR SHIVA.
--- NOTE | 2017-09-06 19:15 | NUR ---
MS RN NOTE NOW ABLE TO GIVE BAG #5 OF POTASSIUM. ENDORSED TO BARBARA ROSA TO GIVE BAG #6.
--- NOTE | 2017-09-06 19:35 | NUR ---
MS RN INITIAL NOTE PT IS IN BED SLEEPING, EASILY AROUSED. NO SIGNS OF SOB OR DISTRESS, BREATHING EVENLY AND UNLABORED ON RA. NPO AT THIS TIME DUE TO VOMITING DURING DAYSHIFT. ABDOMINAL INCISION DRESSING IS INTACT. ONE BAG OF POTASSIUM LEFT TO GIVE ON MY SHIFT. IV ACCESS IS INTACT AND PATENT. BED IS IN LOW AND LOCKED POSITION, CALL LIGHT WITHIN REACH. WILL CONTINUE TO MONITOR PT
[2017-09-06 20:00] VITALS: BP 159/76
--- NOTE | 2017-09-06 20:00 | NUR ---
MS RN NOTE PT TEMP 100.2, COOLING MEASURES INITIATED. WILL RECHECK TEMP
--- NOTE | 2017-09-06 21:40 | NUR ---
MS RN NOTE TEMP IS NOW 98.2
[2017-09-07] MEDS: PIPERACILLIN /TAZOBACTAM 3.375 G in IV D5W 50 ML IV SCH ×3 (05:16→19:28)
[2017-09-07 06:32] LABS: BASOPHILS % (AUTO) 0.2 % (0.0-2.0); EOSINOPHILS % (AUTO) 1.1 % (0.0-6.0); HEMATOCRIT 32 % (33-45); HEMOGLOBIN 11.1 g/dL (11.5-14.8); LYMPHOCYTES # (AUTO) 1.8 /CMM (0.8-4.8); LYMPHOCYTES % (AUTO) 18.8 % (20.0-44.0); MEAN CORPUSCULAR HGB CONC 34 g/dl (31.0-36.0); MEAN CORPUSCULAR VOLUME 85 fL (82-100); MONOCYTES % (AUTO) 10.2 % (2.0-12.0); NEUTROPHILS # (AUTO) 6.6 /CMM (1.8-8.9); NEUTROPHILS % (AUTO) 69.7 % (43.0-81.0); PLATELET COUNT (AUTO) 621 /CMM (150-450); RDW COEFFICIENT OF VARIATION 14.2 (11.5-15.0); RED BLOOD CELL COUNT(AUTO) 3.79 MIL/uL (4.0-5.2); WHITE BLOOD COUNT (AUTO) 9.4 K/uL (4.3-11.0)
--- NOTE | 2017-09-07 06:42 | NUR ---
MS RN CLOSING NOTE PT IS IN BED SLEEPING, EASILY AROUSED. NO SIGNS OF SOB OR DISTRESS, BREATHING EVENLY AND UNLABORED ON RA. HAD ONE EPISODE OF EMESIS LAST NIGHT, NAUSEA WAS RESOLVED WITH ZOFRAN. DRESSING ON ABDOMEN WAS CHANGED. IV ACCESS IS INTACT AND PATENT WITH FLUIDS INFUSING. ALL NEEDS WERE ANTICIPATED AND MET. BED IS IN LOW AND LOCKED POSITION, CALL LIGHT WITHIN REACH. WILL ENDORSE TO DAYSHIFT.
[2017-09-07 07:01] LABS: CALCIUM, SERUM 8.5 mg/dL (8.5-10.1); CREATININE 0.6 mg/dL (0.6-1.3); POTASSIUM 3.2 mmol/L (3.5-5.1)
[2017-09-07 08:00] VITALS: BP 138/82
[2017-09-07] MEDS: METOCLOPRAMIDE HCL 10 MG/2 ML VIAL IV SCH ×3 (09:33→17:52)
[2017-09-07] MEDS: BACITRACIN ZINC OINT PACKET 1 EA PACKET TP SCH (09:33)
[2017-09-07] MEDS: PANTOPRAZOLE 40 MG VIAL IV SCH (09:33)
[2017-09-07] MEDS: AMLODIPINE BESYLATE 5 MG TABLET PO SCH (09:34)
[2017-09-07] MEDS: POTASSIUM CL. PREMIX PERIPHER. 50 ML IV SCH ×4 (11:40→17:46)
[2017-09-07] MEDS: ALPRAZOLAM 0.25 MG TABLET PO PRN ×2 (12:05→20:37)
[2017-09-07] MEDS ORDERED: LORAZEPAM INJ 2 MG/ML VIAL IV ONE (12:30)
[2017-09-07] MEDS ORDERED: BACITRACIN ZINC OINT (15 GM) 15 GM TUBE TP SCH (14:47)
--- NOTE | 2017-09-07 15:00 | NUR ---
IV LEAKING LT. ARM AND REMOVED,RESTART RT. FOREARM WITH #22 ANGIO.
--- NOTE | 2017-09-07 15:00 | NUR ---
DTR. REFUSED DISCHARGE PHOTOS. Addendum: 09/07/17 at 1653 by DERRELL BARBER RN ABOVE NOTE ON INCORRECT PT.
[2017-09-07 16:00] VITALS: BP 147/85
[2017-09-07] MEDS: HYDROCODONE/APAP 5/325MG 1 EACH TABLET PO PRN (16:46)
--- NOTE | 2017-09-07 18:30 | NUR ---
POTASSIUM REPLACEMENT GIVEN.MED SEVERAL TIMES FOR ANXIETY AND X1 FOR PAIN.HAD SEVERAL BMS. VB NET PROGRAMMER LIGHT LILLY.DR. RODRÍGUEZ IN TO SEE PT. INCISIONS WITH AUBRIE DRY AND INTACT.ABD SL. DISTENDED. STILL REMAINS NPO.NO C/O NAUSEA.
[2017-09-07 20:00] VITALS: BP 144/77
--- NOTE | 2017-09-07 20:00 | NUR ---
MS/RN OPENING NOTES PATIENT IN BED, ALERT, ORIENTED X3, ABLE TO VERBALIZE NEEDS, REPORTED ABDOMINAL PAIN, WILL ADMINISTER NEEDED PAIN MEDICATION, REPORTED SEVERE, PATIENT HAD 3 EPISODE OF LOOSE STOOL , WILL COLLECT STOOL TO SEND TO LAB, RESPIRATIONS EVEN AND UNLABORED, SKIN WARM TO TOUCH, RECEIVED REPORT FROM AM RN FOR SHIVA.
[2017-09-07 20:17] VITALS: BP 144/77
[2017-09-07] MEDS: HYDROMORPHONE INJ 2 MG/ML DISP.SYRIN IV PRN (21:15)
--- NOTE | 2017-09-07 22:40 | NUR ---
MS/RN NOTES MD CONTACTED FOR ORDER PATIENT IS NPO PREVIOUS SHIFT, NO N/V AT THIS TIME, CAN TOLERTAE FLUIDS, ORDERED FOR FULL LIQUID DIET.
[2017-09-08] MEDS: HYDROCODONE/APAP 5/325MG 1 EACH TABLET PO PRN ×2 (00:06→06:35)
[2017-09-08] MEDS: PIPERACILLIN /TAZOBACTAM 3.375 G in IV D5W 50 ML IV SCH ×2 (00:10→05:20)
--- NOTE | 2017-09-08 00:32 | NUR ---
PAIN REPORTED 12/13, NORCO 5-325 MG PO NOT EFFECTIVE, OBSERVED GUARDING AND MOANING,WILL ADMINISTER NEEDED DIAUDID 0.5ML/IVP
[2017-09-08] MEDS: HYDROMORPHONE INJ 2 MG/ML DISP.SYRIN IV PRN ×2 (00:47→03:59)
--- NOTE | 2017-09-08 03:59 | NUR ---
MS/RN NOTES PATIENT HAD ONE LOOSE BM, TRANSFER TO B[facility], REPORTED PAIN IN ABDOMEN AT 11/12, B/P CHECK AND WILL ADMINISTER PRN MED.
[2017-09-08 04:33] VITALS: BP 121/71
[2017-09-08 06:34] LABS: CALCIUM, SERUM 8.3 mg/dL (8.5-10.1); CREATININE 0.6 mg/dL (0.6-1.3); POTASSIUM 3.5 mmol/L (3.5-5.1)
[2017-09-08 06:35] LABS: BASOPHILS % (AUTO) 0.4 % (0.0-2.0); EOSINOPHILS % (AUTO) 3.7 % (0.0-6.0); HEMATOCRIT 29 % (33-45); HEMOGLOBIN 9.8 g/dL (11.5-14.8); LYMPHOCYTES # (AUTO) 2.3 /CMM (0.8-4.8); LYMPHOCYTES % (AUTO) 23.3 % (20.0-44.0); MEAN CORPUSCULAR HGB CONC 34 g/dl (31.0-36.0); MEAN CORPUSCULAR VOLUME 85 fL (82-100); MONOCYTES % (AUTO) 10.8 % (2.0-12.0); NEUTROPHILS % (AUTO) 61.8 % (43.0-81.0); PLATELET COUNT (AUTO) 624 /CMM (150-450); RDW COEFFICIENT OF VARIATION 14.8 (11.5-15.0); RED BLOOD CELL COUNT(AUTO) 3.37 MIL/uL (4.0-5.2); WHITE BLOOD COUNT (AUTO) 9.7 K/uL (4.3-11.0)
--- NOTE | 2017-09-08 06:36 | NUR ---
MS/RN NOTES PATIENT REQUESTED FOR PAIN MEDICATION PAIN IN ABDOMEN REPORTED PAIN LEVEL 7/10. WILL MONITOR RELIEF OF PAIN.
[2017-09-08 06:39] LABS: ALBUMIN 2.2 g/dL (3.4-5.0); BILIRUBIN,DIRECT 0.1 mg/dL (0.0-0.2); BILIRUBIN,TOTAL 0.5 mg/dL (0.2-1.0); MAGNESIUM 1.9 mg/dL (1.8-2.4); PHOSPHORUS 3.5 mg/dL (2.5-4.9); TOTAL PROTEIN, SERUM 6.2 g/dL (6.4-8.2)
--- NOTE | 2017-09-08 06:53 | NUR ---
308-1 ms/rn notes PATIENT ALERT, ORIENTED X3, ABLE VERBALIZE NEEDS, RESPIRATIONS EVEN AND UNLABORED.SKIN WARM RO TOUCH, REPORTED PAIN , PAIN. WILL MONITOR.CALL LIGHTS WITHIN REACH.
--- NOTE | 2017-09-08 07:10 | NUR ---
MS/RN OPENING NOTE PATIENT ALERT AND ORIENTED X4. DENIES SOB. RESPIRATION REGULAR AND UNLABORED. DENIES PAIN. RFA G 22 PATENT AND SALINE LOCKED. BED LOW AND LOCKED. SIDE RAILS UP X2. CALL LIGHT WITHIN REACH. WILL CONTINUE TO MONITOR.
[2017-09-08 08:00] VITALS: BP 119/68
[2017-09-08] MEDS: PANTOPRAZOLE 40 MG VIAL IV SCH (08:27)
[2017-09-08] MEDS: METOCLOPRAMIDE HCL 10 MG/2 ML VIAL IV SCH (08:27)
[2017-09-08 08:28] VITALS: BP 119/68
[2017-09-08] MEDS: ALPRAZOLAM 0.25 MG TABLET PO PRN (08:28)
[2017-09-08] MEDS: AMLODIPINE BESYLATE 5 MG TABLET PO SCH (08:28)
--- NOTE | 2017-09-08 13:00 | NUR ---
MS/RN CLOSING NOTE PATIENT ALERT AND ORIENTED X4. DENIES PAIN. DENIES SOB. RESPIRATION REGULAR AND UNLABORED. THE PATIENT NO APPARENT DISTRESS. PATIENT IS PROVIDED DISCHARGE EDUCATION/INSTRUCTIONS. THE PATIENT VERBALIZED UNDERSTANDING. BELONGING LIST IS CHECKED AND ALL ALL BELONGING, INCLUDING MONEY WAS HANDED TO THE RESIDENT AND THE PATIENT SIGNED THE BELONGING LIST UPON DISCHARGE. ALL DISCHARGE PAPERS ARE SIGNED BY THE PATIENT. PATIENT IS PICKED UP BY A FRIEND IN A PRIVATE CAR. PATIENT LEFT THE HOSPITAL IN STABLE CONDITION..
== END 2017-09-08 15:00 | disposition home or self-care (01) | DRG 415 ==
LOC: ER 14:03 → MEDSG2 17:47 → MED 09-02 15:36 → TELE 09-02 15:40 → MED 09-03 08:00
PROVIDERS: ADMIT Nurse Practitioner Acute Care; ATTEND Nurse Practitioner Acute Care
PROC: 0FJ44ZZ Inspection of Gallbladder, Percutaneous Endoscopic Approach (ICD-10-PCS; 2017-09-02)
PROC: 0DNU0ZZ Release Omentum, Open Approach (ICD-10-PCS; 2017-09-02)
PROC: 0FT40ZZ Resection of Gallbladder, Open Approach (ICD-10-PCS; principal; 2017-09-02 10:00)
DX: K80.00 Calculus of gallbladder with acute cholecystitis without obstruction (principal); E87.1 Hypo-osmolality and hyponatremia; R65.10 Systemic inflammatory response syndrome (SIRS) of non-infectious origin without acute organ dysfunction; D72.829 Elevated white blood cell count, unspecified; I10 Essential (primary) hypertension; R73.03 Prediabetes; D63.8 Anemia in other chronic diseases classified elsewhere; E61.1 Iron deficiency; K21.9 Gastro-esophageal reflux disease without esophagitis; M81.0 Age-related osteoporosis without current pathological fracture; Z87.11 Personal history of peptic ulcer disease; D47.3 Essential (hemorrhagic) thrombocythemia; Z88.2 Allergy status to sulfonamides
CPT/HCPCS: 36415; 71045-TC; 74250-TC; 76705-TC; 80048-TC; 80053-TC; 80061-TC; 80076-TC; 81000-TC; 83540-TC; 83690-TC; 83735-TC; 84100-TC; 84443-TC; 85025-TC; 85730-TC; 87040-TC; 87081-TC; 88304-TC; 88305-TC; 93307-TC; A4606; A6253; A6402; A6403; C9113; J1170; J1200; J2060; J2250; J2270; J2405; J2543; J2710; J2765; J3010; J3475; J3480; J3490; J7030; J7050; J7060; J7120; Q9963; Z7610

== ENCOUNTER 2017-09-18 10:15 | Inpatient (IN) | payer MEDICARE, BC ==
[~2017-09-18] VITALS: Ht 160 cm; Wt 55.8 kg
[~2017-09-18 10:15] MED LIST: AMLO5TAB7 PO; TRAM50TA2 PO
--- NOTE | 2017-09-18 10:22 | NUR ---
WOUND CHECK S/P CHOLECYSTECTOMY ON 09/03
[2017-09-18] MEDS ORDERED: PIPERACILLIN /TAZOBACTAM 3.375 G in IV D5W 50 ML IV ONE (11:30)
[2017-09-18] MEDS ORDERED: MORPHINE SULFATE INJ 2 MG/ML DISP.SYRIN IV ONE ×2 (11:30→12:30)
[2017-09-18] MEDS ORDERED: ONDANSETRON HCL/PF 4 MG/2 ML VIAL IVP ONE (11:30)
[2017-09-18] MEDS ORDERED: IV NS 0.9% 1,000 ML BAG IV ONE (11:30)
[2017-09-18] MEDS ORDERED: ONDANSETRON HCL/PF 4 MG/2 ML VIAL ONE (11:46)
[2017-09-18] MEDS ORDERED: MORPHINE SULFATE INJ 4 MG/ML DISP.SYRIN ONE ×2 (11:46→12:02)
[2017-09-18 11:49] LABS: BASOPHILS # (AUTO) 0.1 /CMM (0.0-0.2); BASOPHILS % (AUTO) 0.5 % (0.0-2.0); EOSINOPHILS % (AUTO) 2.2 % (0.0-6.0); HEMATOCRIT 32 % (33-45); LYMPHOCYTES # (AUTO) 1.9 /CMM (0.8-4.8); LYMPHOCYTES % (AUTO) 15.4 % (20.0-44.0); MEAN CORPUSCULAR HGB CONC 35 g/dl (31.0-36.0); MEAN CORPUSCULAR VOLUME 85 fL (82-100); MONOCYTES # (AUTO) 0.7 /CMM (0.1-1.30); MONOCYTES % (AUTO) 5.8 % (2.0-12.0); NEUTROPHILS # (AUTO) 9.4 /CMM (1.8-8.9); NEUTROPHILS % (AUTO) 76.1 % (43.0-81.0); PLATELET COUNT (AUTO) 771 /CMM (150-450); RDW COEFFICIENT OF VARIATION 13.6 (11.5-15.0); RED BLOOD CELL COUNT(AUTO) 3.73 MIL/uL (4.0-5.2); WHITE BLOOD COUNT (AUTO) 12.4 K/uL (4.3-11.0)
--- NOTE | 2017-09-18 11:54 | NUR ---
DR BEEBE AT BEDSIDE FOR SURGICAL CONSULT
[2017-09-18 12:09] LABS: ALBUMIN 2.8 g/dL (3.4-5.0); BILIRUBIN,DIRECT 0.1 mg/dL (0.0-0.2); BILIRUBIN,TOTAL 0.3 mg/dL (0.2-1.0); CALCIUM, SERUM 8.4 mg/dL (8.5-10.1); CREATININE 0.6 mg/dL (0.6-1.3); POTASSIUM 3.8 mmol/L (3.5-5.1); TOTAL PROTEIN, SERUM 6.8 g/dL (6.4-8.2)
[2017-09-18] MEDS ORDERED: DOXY100C2 PO (12:31)
[2017-09-18] MEDS ORDERED: OMEP20CA10 PO (12:33)
[2017-09-18] MEDS ORDERED: LORAZEPAM INJ 2 MG/ML VIAL ONE (12:38)
--- NOTE | 2017-09-18 12:41 | NUR ---
CALLED NURSING PIERCING ARTIST AND REQUESTED A MED SURG BED FOR THIS PT.
[2017-09-18] MEDS ORDERED: diphenhydrAMINE HCL 50 MG/ML VIAL ONE (12:47)
[2017-09-18] MEDS ORDERED: diphenhydrAMINE HCL 50 MG/ML VIAL IV ONE (13:00)
[2017-09-18] MEDS ORDERED: LORAZEPAM INJ 2 MG/ML VIAL IV ONE (13:00)
--- NOTE | 2017-09-18 13:01 | NUR ---
PT TAKEN TO CT
--- NOTE | 2017-09-18 13:30 | NUR ---
JEREMIAH/DR REYES PAGED [phone]
--- NOTE | 2017-09-18 13:52 | NUR ---
ASSIGNED TO MED SURG RM#: [id number], DX: ABDOMINAL WALL CELLULITIS, ACCEPTING MD: DR CUMMINGS
--- NOTE | 2017-09-18 14:12 | NUR ---
GAVE REPORT TO KLEBER ROSA MEDSURG [address] REYES ADMITITNG
--- NOTE | 2017-09-18 14:30 | NUR ---
MS RN NOTES PATIENT ADMITTED TO UNIT, ARRIVED VIA GURNEY, REPORT OBTAINED FROM OMKAR ROSA. PATIENT AWAKE, ALERT AND ORIENTED, VERBALLY RESPONSIVE AND RESPONDS TO VERBAL AND TACTILE STIMULI. BREATHING EVEN AND UNLABORED. NO SOB OR ACUTE DISTRESS NOTED. DENIES ANY PAIN OR DISCOMFORT. PATIENT ADMITTED 2 ABDOMINAL WALL CELLULITIS; POSSIBLE ABSCESS. DR. CUMMINGS AWARE OF ADMISSION. DRESSING IN PLACE ON SITE. PATIENT CALM AND RELAXED. NO CHANGES IN LOC NOTED. WILL CONTINUE TO MONITOR. BED LOCKED AND IN LOW POSITION. BILATERAL UPPER SIDE RAILS UP AND LOCKED. CALL LIGHT WITHIN EASY REACH
[2017-09-18] MEDS ORDERED: ZOLPIDEM TARTRATE 5 MG TABLET PO PRN (17:30)
[2017-09-18] MEDS ORDERED: ONDANSETRON HCL/PF 4 MG/2 ML VIAL IVP PRN (17:30)
[2017-09-18] MEDS ORDERED: VANCOMYCIN 1 GM in IV NS 0.9% 250 ML IV SCH (17:30)
[2017-09-18] MEDS ORDERED: MAGNESIUM HYDROXIDE 30 ML UDC PO PRN (17:30)
[2017-09-18] MEDS ORDERED: ACETAMINOPHEN 325 MG TABLET PO PRN (17:30)
[2017-09-18] MEDS ORDERED: MAG HYDROX/AL HYDROX/SIMETH 30 ML UDC PO PRN (17:30)
[2017-09-18] MEDS ORDERED: Z GUARD REMEDY 2 OZ OINT TP PRN (17:30)
[2017-09-18] MEDS ORDERED: FEE PK DOSING 1 MIN EA MC ONE (17:52)
[2017-09-18] MEDS: ENOXAPARIN SODIUM 40 MG/0.4 ML DISP.SYRIN SQ SCH (18:06)
[2017-09-18] MEDS: IV NS 0.9% 1,000 ML IV PRN (18:50)
--- NOTE | 2017-09-18 19:25 | NUR ---
MS RN NOTES PATIENT RESTING INSIDE ROOM, AWAKE, ALERT AND ORIENTED, VERBALLY RESPONSIVE AND RESPONDS TO VERBAL AND TACTILE STIMULI. BREATHING EVEN AND UNLABORED. NO SOB OR ACUTE DISTRESS NOTED. PATIENT CALM AND RELAXED. IV SITE INTACT AND PATENT. ENDORSED TO INCOMING SHIFT FOR SHIVA. BED LOCKED AND IN LOW POSITION. BILATERAL UPPER SIDE RAILS UP AND LOCKED. CALL LIGHT WITHIN EASY REACH
--- NOTE | 2017-09-18 19:35 | NUR ---
MS RN NOTES RECEIVED ON BED SLEEPING,AROUSABLE TO VERBAL STIMULI,BREATHING REGULAR,NOT IN ANY FORM OF DISTRESS.NS AT 75ML/HR RATE IN PROGRESS,SITE PATENT.ABDOMINAL INCISION WITH IODOSORB DRAIN IN PLACE.WILL CONTINUE FOR FURTHER REDNESS OR DISCHARGES.CALL LIGHT IN REACH,NEEDS ANTICIPATED.
[2017-09-18 20:00] VITALS: BP 121/56
[2017-09-18] MEDS: PIPERACILLIN /TAZOBACTAM 3.375 G in IV NS 0.9% 50 ML IV SCH (20:25)
--- NOTE | 2017-09-18 20:25 | NUR ---
MS RN NOTES ZOSYN 3.375GM IVPB HUNG
--- NOTE | 2017-09-18 21:00 | NUR ---
MS RN NOTES DUE VANCOMYCIN 0.75GM IVPB HUNG
[2017-09-18] MEDS: VANCOMYCIN 0.75 GM in IV NS 0.9% 250 ML IV SCH (21:02)
[2017-09-18] MEDS: HYDROCODONE/APAP 5/325MG 1 EACH TABLET PO PRN (21:11)
--- NOTE | 2017-09-18 21:11 | NUR ---
MS RN NOTES PAIN MANAGEMENT C/O ABDOMINAL PAIN 6/10 ON PAIN SCALE,NORCO 5/325MG,1 TAB PO GIVEN
[2017-09-19] MEDS: PIPERACILLIN /TAZOBACTAM 3.375 G in IV NS 0.9% 50 ML IV SCH ×4 (01:45→20:17)
[2017-09-19] MEDS: HYDROCODONE/APAP 5/325MG 1 EACH TABLET PO PRN ×4 (02:40→18:19)
--- NOTE | 2017-09-19 02:40 | NUR ---
MS RN NOTES AWAKE,C/O ABDOMINAL PAIN 6/10 ON PAIN SCALE.NORCO 5/325MG.1 TAB PO GIVEN ORDERED FOR PAIN MANAGEMENT.
--- NOTE | 2017-09-19 02:41 | NUR ---
RN NOTES COMPLAINED OF PAIN ON HER INCISION SITE ON HER ABDOMEN- NORCO 5/325 MG PO GIVEN ORDERED, V/S STABLE
--- NOTE | 2017-09-19 06:06 | NUR ---
MS RN NOTES PAIN MANAGEMENT EFFECTIVE.IV ABX TOLERATED WELL.AMBULATORY.IN NO ACUTE DISTRESS.WILL ENDORSE TO DAY NURSE FOR SHIVA.
[2017-09-19 06:54] LABS: BASOPHILS % (AUTO) 0.5 % (0.0-2.0); EOSINOPHILS % (AUTO) 3.1 % (0.0-6.0); HEMATOCRIT 33 % (33-45); LYMPHOCYTES # (AUTO) 2.7 /CMM (0.8-4.8); LYMPHOCYTES % (AUTO) 31.9 % (20.0-44.0); MEAN CORPUSCULAR HGB CONC 34 g/dl (31.0-36.0); MEAN CORPUSCULAR VOLUME 89 fL (82-100); MONOCYTES # (AUTO) 0.6 /CMM (0.1-1.30); MONOCYTES % (AUTO) 7.3 % (2.0-12.0); NEUTROPHILS # (AUTO) 4.9 /CMM (1.8-8.9); NEUTROPHILS % (AUTO) 57.2 % (43.0-81.0); PLATELET COUNT (AUTO) 735 /CMM (150-450); RDW COEFFICIENT OF VARIATION 14.2 (11.5-15.0); RED BLOOD CELL COUNT(AUTO) 3.66 MIL/uL (4.0-5.2); WHITE BLOOD COUNT (AUTO) 8.6 K/uL (4.3-11.0)
[2017-09-19 07:06] LABS: THYROID STIMULATING HORMONE 5.254 uIU/mL (0.358-3.74)
--- NOTE | 2017-09-19 07:10 | NUR ---
MSRN OPENING NOTES. PT RECEIVED A&0X3, RESTING IN BED AND TEARY STATING SHE REALLY WANT TO GO HOME TODAY. PT TOLERATING ROOM AIR WITHOUT SOB OR RESP DISTRESS, PT DENIES PAIN. PT ABDO BANDAGE AT R LAT BADO INTACT AND NAD, ENDORSED CHANGE BY NIGHT NURSE THIS AM. PT WITH IVC AT L FA G#20 INTACT AND OPERATIONAL. PT BED IN LOWEST LOCKED POSITION WITH HNADRAILSX2 AND CALL SALVADOR WITHIN REACH. BRIEFED ON TODAY'S POC AND BECAME VERY UPSET R/T LEAVING TODAY. PT RESPONSIVE TO PLANNING AND CALM REASSURANCE. WILL CONT TO ENGAGE AND MONITOR.
[2017-09-19 07:11] LABS: CALCIUM, SERUM 8.3 mg/dL (8.5-10.1); CREATININE 0.6 mg/dL (0.6-1.3); MAGNESIUM 1.7 mg/dL (1.8-2.4); PHOSPHORUS 3.8 mg/dL (2.5-4.9); POTASSIUM 3.6 mmol/L (3.5-5.1)
[2017-09-19 08:00] VITALS: BP 156/94
[2017-09-19] MEDS: AMLODIPINE BESYLATE 5 MG TABLET PO SCH (08:12)
[2017-09-19] MEDS: VANCOMYCIN 0.75 GM in IV NS 0.9% 250 ML IV SCH ×2 (09:08→21:50)
[2017-09-19] MEDS: Magnesium 1GM/D5W 100ML PREMIX 100 ML IV SCH ×2 (11:28→12:31)
[2017-09-19] MEDS: LORAZEPAM 1 MG TABLET PO PRN ×2 (13:22→19:22)
[2017-09-19] MEDS ORDERED: HYDROMORPHONE 1 MG/1 ML DISP.SYRIN IV PRN (13:30)
[2017-09-19 16:00] VITALS: BP 116/65
--- NOTE | 2017-09-19 18:51 | NUR ---
MSRN CLOSING NOTES. PT RECEIVED A&0X3, PT TOLERATING ROOM AIR WITHOUT SOB OR RESP DISTRESS, PT REPORTS PAIN MANAGEMENT ADEQUATE AT THIS TIME. PT ABDO BANDAGE AT R LAT ABDO INTACT AND NAD. PT WITH IVC AT L FA G#20 INTACT AND OPERATIONAL. PT BED IN LOWEST LOCKED POSITION WITH HNADRAILSX2 AND CALL SALVADOR WITHIN REACH. PT RESPONSIVE TO CALM REASSURANCE. ALL DAY NURSE DUTIES ATTENDED TO AND PT IS WITHOUT CONCERN OR COMPLAINT AT THIS.
--- NOTE | 2017-09-19 19:25 | NUR ---
MS/RN NOTES RECEIVED PT. SITTING UP IN BED. PT. IS AWAKE, ALERT AND ORIENTED X4. BREATHING EVEN AND UNLABORED ON ROOM AIR. NO SOB, RESPIRATORY DISTRESS OR COMPLAINTS OF PAIN NOTED AT THIS TIME. PT. WITH LEFT FOREARM 20 GAUGE PERIPHERAL IV PRESENT, PATENT AND INTACT ADMINISTERING TO PT. NS @ 75ML/HR. PT. WITH ABDOMINAL DRESSING PRESENT, CLEAN, DRY AND INTACT. BED IN LOWEST POSITION, SIDE RAILS UP X2, CALL LIGHT WITHIN REACH, WILL CONTINUE TO MONITOR.
[2017-09-19 20:00] VITALS: BP 135/75
[2017-09-19] MEDS: IV NS 0.9% 1,000 ML IV PRN (20:17)
[2017-09-19] MEDS: ENOXAPARIN SODIUM 40 MG/0.4 ML DISP.SYRIN SQ SCH (21:51)
[2017-09-20] MEDS: PIPERACILLIN /TAZOBACTAM 3.375 G in IV NS 0.9% 50 ML IV SCH ×3 (02:39→12:57)
[2017-09-20] MEDS: LORAZEPAM 1 MG TABLET PO PRN (04:49)
--- NOTE | 2017-09-20 06:27 | NUR ---
MS/RN NOTES PT. IS LYING IN BED RESTING. BREATHING EVEN AND UNLABORED ON ROOM AIR. NO SOB, RESPIRATORY DISTRESS OR COMPLAINTS OF PAIN NOTED AT THIS TIME. PT. WITH LEFT FOREARM 20 GAUGE PERIPHERAL IV PRESENT, PATENT AND INTACT ADMINISTERING TO PT. NS @ 75ML/HR. ALL PT. NEEDS MET. BED IN LOWEST POSITION, SIDE RAILS UP X2, CALL LIGHT WITHIN REACH, WILL ENDORSE TO DAYSHIFT NURSE FOR CONTINUITY OF CARE.
[2017-09-20 07:15] LABS: CALCIUM, SERUM 8.4 mg/dL (8.5-10.1); CREATININE 0.6 mg/dL (0.6-1.3); MAGNESIUM 1.9 mg/dL (1.8-2.4); POTASSIUM 3.7 mmol/L (3.5-5.1)
--- NOTE | 2017-09-20 08:00 | NUR ---
rn notes patient received in the bed a/o x4, anxious, asking pain medication on pain scale 6/10, administered narco 5/325 mg po prn, and scheduled medication. iv on left fa intact infusing zosin antibiotic at this time. patient asking to d/c home, patient stable, no acute distress, patient ambulatory, dressing changed, call light within to reach, continued monitoring.
[2017-09-20] MEDS: HYDROCODONE/APAP 5/325MG 1 EACH TABLET PO PRN ×2 (08:09→14:18)
[2017-09-20] MEDS: AMLODIPINE BESYLATE 5 MG TABLET PO SCH (08:10)
[2017-09-20] MEDS: VANCOMYCIN 0.75 GM in IV NS 0.9% 250 ML IV SCH (09:00)
[2017-09-20 09:12] VITALS: BP 126/71
[2017-09-20] MEDS ORDERED: HYDR-3972 PO (11:50)
[2017-09-20] MEDS ORDERED: CLIN300C11 PO (11:50)
--- NOTE | 2017-09-20 12:15 | NUR ---
RN NOTES PATIENT STABLE MEDICATION WERE ADMINISTERED FOR PAIN EFFECTIVE,. PATIENT GOING TO D/C HOME.
[2017-09-20] MEDS ORDERED: CLINDAMYCIN HCL 150 MG CAPSULE PO SCH (14:00)
--- NOTE | 2017-09-20 16:05 | NUR ---
DISCHARGE NOTES PATIENT STABLE TO D/C HOME WITH HOME HEALTH. PATIENT STABLE NO C/O PAIN AT HIS TIME. MED COMPLIANT. PATIENT AMBULATORY SELF CARE. PATIENT WILL FOLLOW UP SURGEON Dr. ADAIR WILL CALL AND TAKE A APPOINTMENT. DISCHARGE ORDER REVIEWED AND EXPLAINED TO. PATIENT VERBALIZED UNDERSTANDING. BELONGING WITH THE PATIENT. 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 PRESCRIPTION GIVEN TO THE PATIENT . PATIENT SIGN PAPERWORK. ESCORTED PATIENT TO THE LOBBY FOR SAFETY.
[2017-09-20] MEDS ORDERED: VANCOMYCIN 1 GM in IV D5W 250 ML IV SCH (20:00)
== END 2017-09-20 16:00 | disposition home health service (06) | DRG 863 ==
LOC: ER 10:17 → MED 13:57
DX: T81.4XXA Infection following a procedure, initial encounter (principal); L03.311 Cellulitis of abdominal wall; L02.211 Cutaneous abscess of abdominal wall; Z87.11 Personal history of peptic ulcer disease; K27.9 Peptic ulcer, site unspecified, unspecified as acute or chronic, without hemorrhage or perforation; K21.9 Gastro-esophageal reflux disease without esophagitis; Y83.8 Other surgical procedures as the cause of abnormal reaction of the patient, or of later complication, without mention of misadventure at the time of the procedure; Z88.2 Allergy status to sulfonamides; I10 Essential (primary) hypertension; M81.0 Age-related osteoporosis without current pathological fracture; Z90.3 Acquired absence of stomach [part of]; Z90.49 Acquired absence of other specified parts of digestive tract; Y92.009 Unspecified place in unspecified non-institutional (private) residence as the place of occurrence of the external cause
CPT/HCPCS: 36415; 80048-TC; 80061-TC; 80076-TC; 80202-TC; 83735-TC; 84100-TC; 84443-TC; 85025-TC; 87070-TC; 87081-TC; 87186-TC; A4216; A4606; A6253; A6402; A6403; A6407; J1200; J1650; J2060; J2270; J2405; J2543; J3370; J3475; J7030; J7050; J7060; Z7610

== ENCOUNTER 2023-05-20 17:19 | Emergency (ER) | payer MEDICARE, BC ==
[~2023-05-20] VITALS: Ht 160 cm; Wt 59.0 kg
[~2023-05-20 17:19] MED LIST changes: +AMLO-212 PO; -AMLO5TAB7 PO; +CLIN300C12 PO; +HYDR-3972 PO; +OMEP20CA15 PO; -TRAM50TA2 PO
[2023-05-20] MEDS ORDERED: MORPHINE SULFATE INJ 2 MG/ML DISP.SYRIN ONE ×2 (18:47→21:45)
[2023-05-20] MEDS: MORPHINE SULFATE INJ 2 MG/ML DISP.SYRIN IV ONE ×2 (18:49→20:01)
[2023-05-20 19:04] LABS: BASOPHILS # (AUTO) 0.1 K/uL (0.0-0.2); BASOPHILS % (AUTO) 0.6 % (0.0-2.0); EOSINOPHILS # (AUTO) 0.2 K/uL (0.0-0.7); EOSINOPHILS % (AUTO) 1.6 % (0.0-6.0); HEMATOCRIT 36 % (33-45); HEMOGLOBIN 12.4 g/dL (11.5-14.8); LYMPHOCYTES # (AUTO) 1.9 K/uL (0.8-4.8); LYMPHOCYTES % (AUTO) 16.2 % (20.0-44.0); MEAN CORPUSCULAR HEMOGLOBIN 29 PG (26.0-33.0); MEAN CORPUSCULAR HGB CONC 35 g/dl (31.0-36.0); MEAN CORPUSCULAR VOLUME 83 fL (82-100); MONOCYTES # (AUTO) 0.7 K/uL (0.1-1.30); MONOCYTES % (AUTO) 6.4 % (2.0-12.0); NEUTROPHILS # (AUTO) 8.6 K/uL (1.8-8.9); NEUTROPHILS % (AUTO) 75.2 % (43.0-81.0); PLATELET COUNT (AUTO) 443 K/uL (150-450); RED BLOOD CELL COUNT(AUTO) 4.31 MIL/uL (4.0-5.2); RED CELL DISTRIBUTION WIDTH 14.4 % (11.5-15.0); WHITE BLOOD COUNT (AUTO) 11.5 K/uL (4.3-11.0)
[2023-05-20 19:26] LABS: CALCIUM, SERUM 9.3 mg/dL (8.5-10.1); CARBON DIOXIDE 27 mmol/L (21-32); CHLORIDE 104 mmol/L (98-107); CREATININE 0.4 mg/dL (0.6-1.3); GLUCOSE 108 mg/dL (74-106); POTASSIUM 3.5 mmol/L (3.5-5.1); SODIUM SERUM 142 mmol/L (136-145); UREA NITROGEN, BLOOD 11 mg/dL (7-18)
[2023-05-20 19:35] LABS: ALANINE AMINOTRANSFERASE 26 U/L (12-78); ALBUMIN 3.4 g/dL (3.4-5.0); ALKALINE PHOSPHATASE 165 U/L (46-116); ASPARTATE AMINOTRANSFERASE 17 U/L (15-37); BILIRUBIN,DIRECT 0.1 mg/dL (0.0-0.2); BILIRUBIN,TOTAL 0.3 mg/dL (0.2-1.0); LIPASE 20 U/L (16-77); TOTAL PROTEIN, SERUM 6.9 g/dL (6.4-8.2)
[2023-05-20] MEDS ORDERED: MORPHINE SULFATE INJ 4 MG/ML DISP.SYRIN ONE (19:57)
[2023-05-20 20:13] LABS: INR 0.99 (0.91-1.10); PARTIAL THROMBOPLASTIN TIME 28.9 SEC (24.3-34.3); PROTHROMBIN TIME 10.5 SECS (9.2-11.1)
[2023-05-20] MEDS ORDERED: ACETAMINOPHEN 325 MG TABLET PO PRN (21:00)
[2023-05-20] MEDS ORDERED: IV NS 0.9% 1,000 ML IV SCH (21:00)
[2023-05-20] MEDS ORDERED: ONDANSETRON HCL/PF 4 MG/2 ML VIAL IVP PRN (21:00)
[2023-05-20] MEDS ORDERED: hydrALAZINE HCL IV 20 MG VIAL IV PRN (21:30)
[2023-05-20] MEDS: MORPHINE SULFATE INJ 2 MG/ML DISP.SYRIN IV PRN (21:55)
[2023-05-20 22:06] LABS: APPEARANCE,URINE SLIGHTLY CLOUDY (CLEAR); BILIRUBIN,URINE NEGATIVE (NEGATIVE); BLOOD, URINE TRACE-INTA Ery/uL (NEGATIVE); COLOR,URINE YELLOW (YELLOW); KETONES,URINE NEGATIVE (NEGATIVE); LEUKOCYTE ESTERASE ,URINE 1+ (NEGATIVE); NITRITE, URINE NEGATIVE (NEGATIVE); PROTEIN,URINE NEGATIVE (NEGATIVE); UGLUCOSE NEGATIVE (NEGATIVE); UROBILINOGEN,URINE 0.2 EU/dL (0.2)
[2023-05-20 22:53] LABS: ADD URINE CULTURE YES; BACTERIA,URINE Few /HPF (None Seen); SQUAMOUS EPITHELIAL CELL,UR Rare /HPF (None Seen)
[2023-05-21] MEDS ORDERED: MORPHINE SULFATE INJ 4 MG/ML DISP.SYRIN ONE ×2 (00:44→08:29)
[2023-05-21] MEDS: MORPHINE SULFATE INJ 2 MG/ML DISP.SYRIN IV PRN (00:50)
[2023-05-21 06:58] LABS: BASOPHILS # (AUTO) 0.1 K/uL (0.0-0.2); BASOPHILS % (AUTO) 0.8 % (0.0-2.0); EOSINOPHILS # (AUTO) 0.2 K/uL (0.0-0.7); EOSINOPHILS % (AUTO) 2.3 % (0.0-6.0); HEMATOCRIT 36 % (33-45); HEMOGLOBIN 12.2 g/dL (11.5-14.8); LYMPHOCYTES # (AUTO) 1.7 K/uL (0.8-4.8); LYMPHOCYTES % (AUTO) 16.4 % (20.0-44.0); MEAN CORPUSCULAR HEMOGLOBIN 29 PG (26.0-33.0); MEAN CORPUSCULAR HGB CONC 34 g/dl (31.0-36.0); MEAN CORPUSCULAR VOLUME 84 fL (82-100); MONOCYTES # (AUTO) 0.5 K/uL (0.1-1.30); NEUTROPHILS # (AUTO) 7.9 K/uL (1.8-8.9); NEUTROPHILS % (AUTO) 75.5 % (43.0-81.0); PLATELET COUNT (AUTO) 409 K/uL (150-450); RED BLOOD CELL COUNT(AUTO) 4.25 MIL/uL (4.0-5.2); RED CELL DISTRIBUTION WIDTH 14.6 % (11.5-15.0); WHITE BLOOD COUNT (AUTO) 10.5 K/uL (4.3-11.0)
[2023-05-21 07:47] LABS: ALANINE AMINOTRANSFERASE 23 U/L (12-78); ALBUMIN 3.1 g/dL (3.4-5.0); ALKALINE PHOSPHATASE 148 U/L (46-116); ASPARTATE AMINOTRANSFERASE 14 U/L (15-37); BILIRUBIN,TOTAL 0.3 mg/dL (0.2-1.0); CALCIUM, SERUM 8.9 mg/dL (8.5-10.1); CARBON DIOXIDE 30 mmol/L (21-32); CHLORIDE 105 mmol/L (98-107); CREATININE 0.5 mg/dL (0.6-1.3); GLUCOSE 111 mg/dL (74-106); PHOSPHORUS 4.3 mg/dL (2.5-4.9); POTASSIUM 3.3 mmol/L (3.5-5.1); SODIUM SERUM 142 mmol/L (136-145); TOTAL PROTEIN, SERUM 6.3 g/dL (6.4-8.2); UREA NITROGEN, BLOOD 10 mg/dL (7-18)
[2023-05-21 10:04] VITALS: BP 138/72; TEMP 98; O2SAT 98
[2023-05-22] MEDS ORDERED: HEPARIN SODIUM, PORCINE 5000 UNITS/1 ML VIAL SQ SCH (21:00)
== END 2023-05-21 10:08 | disposition short-term general hospital (02) ==
LOC: ER 17:19
DX: K56.609 Unspecified intestinal obstruction, unspecified as to partial versus complete obstruction (principal); R10.84 Generalized abdominal pain; K21.9 Gastro-esophageal reflux disease without esophagitis; Z90.49 Acquired absence of other specified parts of digestive tract; Z88.8 Allergy status to other drugs, medicaments and biological substances; Z20.822 Contact with and (suspected) exposure to COVID-19
CPT/HCPCS: 99291; 74176; 96374; 87426; 96376 ×2; 85025 ×2; 80048; 87086 ×2; 83605; 83690; 80076; 81001; 36415 ×2; 85730; 86850; 87081; 83735; 84100; 80053; J2270 ×5